=== PATIENT | female | born 1990 | race Caucasian/White ===

== ENCOUNTER 2016-08-27 17:18 | Inpatient (IN) | payer BC ==
[2016-08-27 17:56] LABS: HEMOGLOBIN 12.3 gm/dl (12.3-15.3); RED BLOOD COUNT 3.72 M/UL (4.00-5.10); WHITE BLOOD COUNT 13.8 K/UL (4.5-11.0)
[2016-08-29 02:59] LABS: HEMOGLOBIN 10.2 gm/dl (12.3-15.3)
[2016-08-30] MEDS ORDERED: COLACE 100MG C100 MG PO (15:41)
== END 2016-08-30 15:36 | disposition home or self-care (01) | DRG 766 ==
LOC: GENOP 17:18 → OB 22:08
PROVIDERS: Obstetrics & Gynecology; ADMIT Obstetrics & Gynecology
PROC: 3E0P7GC Introduction of Other Therapeutic Substance into Female Reproductive, Via Natural or Artificial Opening (ICD-10-PCS; 2016-08-27)
PROC: 3E033VJ Introduction of Other Hormone into Peripheral Vein, Percutaneous Approach (ICD-10-PCS; 2016-08-28)
PROC: 3E0R3CZ (ICD-10-PCS; 2016-08-28)
PROC: 10D00Z1 Extraction of Products of Conception, Low, Open Approach (ICD-10-PCS; principal; 2016-08-28 15:30)
DX: O12.04 Gestational edema, complicating childbirth (principal); O76 Abnormality in fetal heart rate and rhythm complicating labor and delivery; O62.0 Primary inadequate contractions; Z3A.39 39 weeks gestation of pregnancy; Z37.0 Single live birth; O99.214 Obesity complicating childbirth; E66.9 Obesity, unspecified; Z68.32 Body mass index [BMI] 32.0-32.9, adult; O99.89 Other specified diseases and conditions complicating pregnancy, childbirth and the puerperium; M54.9 Dorsalgia, unspecified; O99.613 Diseases of the digestive system complicating pregnancy, third trimester; K58.9 Irritable bowel syndrome, unspecified; Z80.3 Family history of malignant neoplasm of breast; Z82.49 Family history of ischemic heart disease and other diseases of the circulatory system; Z83.79 Family history of other diseases of the digestive system; Z81.8 Family history of other mental and behavioral disorders
CPT/HCPCS: 36415; 81001; 82800; 85014; 85018; 85025; C9113; J0690; J2274; J2405; J2590; J2765; J2795; J3010; J7120

== ENCOUNTER → 2021-06-26 | Outpatient (CLI) | payer BC ==
[~2021-06-26] MED LIST: COLACE 100MG C100 MG PO
== END ==
LOC: KOH-I 16:35
DX: M54.2 Cervicalgia (principal); M47.812 Spondylosis without myelopathy or radiculopathy, cervical region
CPT/HCPCS: 72040